=== PATIENT | female | born 1980 | race Caucasian/White ===

== ENCOUNTER 2019-02-11 21:12 | Observation (INO) | payer BC ==
[~2019-02-11] VITALS: Ht 172.7 cm; Wt 83.5 kg
[2019-02-11] MEDS: TERBUTALINE SULFATE 1 MG/ML VIAL SUBCUT PRN ×2 (21:55→23:16)
[2019-02-11] MEDS: LR 1,000 ML IV SCH ×2 (22:21→23:14)
[2019-02-11] MEDS ORDERED: TERBUTALINE SULFATE 1 MG/ML VIAL ONE (22:22)
[2019-02-11] MEDS ORDERED: MORPHINE SULFATE 10 MG/ML VIAL IVP ONE (22:45)
[2019-02-11] MEDS ORDERED: COMMUNICATION ORDER XX ONE (22:45)
[2019-02-11] MEDS ORDERED: PROMETHAZINE INJ.Non-Formulary 25 MG/ML AMP IM ONE (22:45)
[2019-02-11] MEDS ORDERED: PROMETHAZINE INJ.Non-Formulary 25 MG/ML AMP ONE (23:05)
[2019-02-11] MEDS ORDERED: MORPHINE SULFATE 10 MG/ML VIAL ONE (23:06)
[2019-02-11 23:17] LABS: HEMATOCRIT 27.5 % (36-48); HEMOGLOBIN 9.2 g/dL (12.0-16.0); MEAN CORPUSCULAR VOLUME 92 fL (79.0-98.0); RED BLOOD CELL COUNT(AUTO) 2.99 MIL/uL (4.2-6.2); WHITE BLOOD COUNT (AUTO) 12.5 K/uL (4.8-10.8)
[2019-02-11 23:18] LABS: BASOPHILS # (AUTO) 0.1 K/uL (0.0-0.2); BASOPHILS % (AUTO) 0.5 % (0.0-2.0); EOSINOPHILS # (AUTO) 0.2 K/uL (0.0-0.4); EOSINOPHILS % (AUTO) 1.3 % (0.0-4.0); LYMPHOCYTES # (AUTO) 3.4 K/uL (1.0-5.5); LYMPHOCYTES % (AUTO) 26.8 % (20.5-51.5); MEAN CORPUSCULAR HEMOGLOBIN 31 pg (27-31); MEAN CORPUSCULAR HGB CONC 33 % (32-36); MONOCYTES # (AUTO) 0.8 K/uL (0.0-1.0); MONOCYTES % (AUTO) 6.4 % (1.7-9.3); NEUTROPHILS # (AUTO) 8.2 K/uL (1.8-7.7); PLATELET COUNT (AUTO) 286 K/uL (130-430); RED CELL DISTRIBUTION WIDTH 14.9 % (9.0-15.0)
[2019-02-12 00:13] LABS: BILIRUBIN,URINE NEGATIVE (NEGATIVE); BLOOD, URINE NEGATIVE (NEGATIVE); CLARITY/URINE CLEAR (CLEAR); COLOR,URINE YELLOW (YELLOW); GLUCOSE,URINE NEGATIVE (NEGATIVE); KETONES,URINE TRACE (NEGATIVE); LEUKOCYTE ESTERASE ,URINE NEGATIVE (NEGATIVE); NITRITE, URINE NEGATIVE (NEGATIVE); PROTEIN URINE NEGATIVE (NEGATIVE); UROBILINOGEN,URINE 0.2 (0.2-1.0)
[2019-02-12 07:18] VITALS: BP_SYST 103
== END 2019-02-12 12:29 | disposition home or self-care (01) ==
LOC: SPU 21:12
PROVIDERS: ADMIT Specialist; ATTEND Specialist
DX: O26.892 Other specified pregnancy related conditions, second trimester (principal); R10.31 Right lower quadrant pain; Z3A.24 24 weeks gestation of pregnancy
CPT/HCPCS: 36415; 81002; 81003; 85025; 87086; 96372; G0378 ×2; J2270; J2550; J3105; 59899

== ENCOUNTER 2019-04-25 14:25 | Observation (INO) | payer BC ==
[~2019-04-25] VITALS: Ht 172.7 cm; Wt 81.6 kg
[2019-04-25] MEDS ORDERED: D5/0.45 NS 1,000 ML IV SCH (14:45)
[2019-04-25] MEDS ORDERED: MORPHINE SULFATE 10 MG/ML VIAL IVP ONE (16:15)
[2019-04-25] MEDS ORDERED: MEPERIDINE HCL/PF 50 MG/ML AMP IVP PRN (16:15)
[2019-04-25] MEDS ORDERED: PROMETHAZINE INJ.Non-Formulary 25 MG/ML AMP IVP ONE (16:15)
[2019-04-25] MEDS ORDERED: MEPERIDINE HCL/PF 100 MG/ML AMP ONE (16:21)
[2019-04-25] MEDS ORDERED: MORPHINE SULFATE 10 MG/ML VIAL ONE (16:28)
== END 2019-04-25 17:40 | disposition home or self-care (01) ==
LOC: SPU 14:25
PROVIDERS: ADMIT Specialist; ATTEND Specialist
DX: O62.9 Abnormality of forces of labor, unspecified (principal); Z3A.35 35 weeks gestation of pregnancy
CPT/HCPCS: G0378; J2270; J2175